=== PATIENT | female | born 1985 | race Hispanic/Latino ===

== ENCOUNTER 2020-11-26 08:58 | Outpatient (CLI) | payer BC ==
--- NOTE | 2020-11-26 10:29 | Ultrasound Report ---
ULTRASOUND BREAST LEFT LIMITED, 11/26/2020 CLINICAL INFORMATION / INDICATION: LT BREAST LUMP UNSPECIFIED QUAD. TECHNIQUE: Targeted ultrasound evaluation was performed of the area of interest. COMPARISON: None. FINDINGS: No sonographic abnormalities are seen in the area of concern in the left breast. No solid or cystic l esions are seen. IMPRESSION: No sonographic evidence of malignancy. Follow up recommendation: Clinical exam BI-RADS Category 1: Negative. A normal or "negative" report should not preclude biopsy or follow-up of a clinically suspicious find ing. Signer Name: Mo Reveles MD Signed: 11/26/2020 10:24 AM Workstation Name: [email or web address]
== END 2020-11-26 08:59 | disposition home or self-care (01) ==
LOC: SPVWC 08:58
PROVIDERS: ATTEND Obstetrics & Gynecology
DX: N63.20 Unspecified lump in the left breast, unspecified quadrant (principal); R92.8 Other abnormal and inconclusive findings on diagnostic imaging of breast